=== PATIENT | female | born 1995 | race Two or more races ===

== ENCOUNTER 2017-08-01 12:05 | Emergency (ER) | payer OTHER, BC ==
[~2017-08-01] VITALS: Ht 165.1 cm; Wt 65.0 kg
[2017-08-01 12:14] VITALS: BP 141/84; PULSE 66; RESP 16; TEMP 98.3; O2SAT 100
[2017-08-01] MEDS ORDERED: LORazepam 2 MG/ML VIAL IM ONE (12:30)
[2017-08-01] MEDS ORDERED: KETOROLAC TROMETHAMINE 60 MG/2 ML (IM) VIAL IM ONE (12:30)
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
[2017-08-01] MEDS ORDERED: CYCL10TA PO (14:48)
[2017-08-01] MEDS ORDERED: TRAM50 PO (14:48)
== END 2017-08-01 15:21 | disposition home or self-care (01) ==
LOC: NEPD 12:05
DX: S80.211A Abrasion, right knee, initial encounter (principal); S50.312A Abrasion of left elbow, initial encounter; M25.521 Pain in right elbow; M79.605 Pain in left leg; V03.90XA Pedestrian on foot injured in collision with car, pick-up truck or van, unspecified whether traffic or nontraffic accident, initial encounter; Y93.01 Activity, walking, marching and hiking
CPT/HCPCS: 72125; 72128; 72131; 73080; 73564; 96372; 99284; J1885; J2060